=== PATIENT | female | born 1970 | race American Indian/Alaskan Native ===

== ENCOUNTER 2019-02-05 11:22 | Emergency (ER) | payer MEDICAID ==
[~2019-02-05] VITALS: Ht 154.9 cm; Wt 68.9 kg
[2019-02-05 12:37] LABS: Basophils # (auto) 0.1 uL; Basophils % (auto) 0.8 % (0.0-2.0); Eosinophils # (auto) 0 uL; Eosinophils % (auto) 0.1 % (0.0-7.0); Hematocrit 42.5 % (36.0-46.0); Hemoglobin 14.3 g/dL (12.2-16.2); Lymphocytes # (auto) 2.7 uL; Lymphocytes % (auto) 18.3 % (10.0-50.0); Mean Corpuscular Hemoglobin 31.1 pg (28.0-32.0); Mean Corpuscular Hgb Conc. 33.7 g/dL (32.0-36.0); Mean Corpuscular Volume 92.3 fL (80.0-100.0); Monocytes # (auto) 0.8 uL; Monocytes % (auto) 5.4 % (0.0-12.0); Neutrophils # (auto) 11.3 uL; Neutrophils % (auto) 75.4 % (37.0-80.0); Platelet Count (auto) 367 10^3/uL (140-450); Red Blood Cells 4.61 10^6/uL (4.0-5.20); Red Cell Distribution Width 13.2 % (11.8-14.3); White Blood Cell 14.9 10^3/uL (4.4-10.8)
[2019-02-05 12:57] LABS: Albumin 3.8 g/dL (3.4-5.0); Calcium 9.3 mg/dL (8.5-10.1); Potassium 3.7 mmol/L (3.5-5.1)
[2019-02-05 13:00] LABS: BUN/Creatinine Ratio 8.2; Bilirubin, Total 0.7 mg/dL (0.2-1.0); Total Protein 8.4 g/dL (6.4-8.2)
[2019-02-05 14:42] LABS: Urine Bacteria NONE SEEN /hpf (None Seen); Urine Blood Negative /uL (Negative); Urine Specific Gravity 1.014 (1.001-1.035); Urine WBC 4 /hpf (0 - 5)
[2019-02-05 15:51] VITALS: BP 127/85
== END 2019-02-05 16:25 | disposition home or self-care (01) ==
LOC: ER 11:35
DX: K92.2 Gastrointestinal hemorrhage, unspecified (principal); K64.9 Unspecified hemorrhoids
CPT/HCPCS: 36415; 74176; 80053; 81001; 85025

== ENCOUNTER → 2019-03-29 | Emergency (ER) | payer MEDICAID ==
[~2019-03-29] VITALS: Ht 154.9 cm; Wt 69.4 kg
[2019-03-29 09:19] VITALS: BP 157/76
[2019-03-29 09:50] LABS: Basophils # (auto) 0 uL; Basophils % (auto) 0.3 % (0.0-2.0); Eosinophils # (auto) 0.2 uL; Eosinophils % (auto) 2.6 % (0.0-7.0); Hematocrit 42.3 % (36.0-46.0); Hemoglobin 14.2 g/dL (12.2-16.2); Lymphocytes % (auto) 33.6 % (10.0-50.0); Mean Corpuscular Hemoglobin 30.8 pg (28.0-32.0); Mean Corpuscular Hgb Conc. 33.5 g/dL (32.0-36.0); Mean Corpuscular Volume 91.9 fL (80.0-100.0); Monocytes # (auto) 0.5 uL; Monocytes % (auto) 5.6 % (0.0-12.0); Neutrophils # (auto) 5.1 uL; Neutrophils % (auto) 57.9 % (37.0-80.0); Nucleated Red Blood Cells % 0.1 %; Platelet Count (auto) 363 10^3/uL (140-450); Red Blood Cells 4.61 10^6/uL (4.0-5.20); Red Cell Distribution Width 13.2 % (11.8-14.3); White Blood Cell 8.8 10^3/uL (4.4-10.8)
[2019-03-29 10:07] LABS: Albumin 3.8 g/dL (3.4-5.0); BUN/Creatinine Ratio 10.1; Bilirubin, Total 0.8 mg/dL (0.2-1.0); Calcium 8.9 mg/dL (8.5-10.1); Total Protein 8.6 g/dL (6.4-8.2)
== END | disposition home or self-care (01) ==
LOC: ER 09:04
DX: N39.0 Urinary tract infection, site not specified (principal)
CPT/HCPCS: 36415; 80053; 85025

== ENCOUNTER 2023-08-30 16:10 | Emergency (ER) | payer MEDICAID ==
[~2023-08-30] VITALS: Ht 154.9 cm; Wt 70.0 kg
[2023-08-30 18:31] VITALS: BP 131/86; PULSE 116; RESP 16; TEMP 98.7; O2SAT 99
[2023-08-30] MEDS: ACETAMINOPHEN 325 MG TAB PO ONE (18:36)
[2023-08-30 20:07] LABS: Rapid Influenza A Negative (Negative); Rapid Influenza B Negative (Negative)
[2023-08-30 20:11] LABS: COVID19 ANTIGEN SOFIA FIA POSITIVE (NEGATIVE)
== END 2023-08-30 20:50 | disposition home or self-care (01) ==
LOC: ER 16:10
DX: U07.1 COVID-19 (principal); Z98.890 Other specified postprocedural states
CPT/HCPCS: 36415; 87426; 87804